=== PATIENT | female | born 1975 | race Caucasian/White ===

== ENCOUNTER 2018-01-31 17:39 | Emergency (ER) | payer OTHER ==
[~2018-01-31] VITALS: Ht 152.4 cm; Wt 58.1 kg
== END 2018-01-31 20:02 | disposition home or self-care (01) ==
LOC: ER 17:39
DX: S80.01XA Contusion of right knee, initial encounter (principal); W18.39XA Other fall on same level, initial encounter; Y93.89 Activity, other specified; Y92.488 Other paved roadways as the place of occurrence of the external cause; Y99.8 Other external cause status

== ENCOUNTER 2022-04-17 21:19 | Emergency (ER) | payer OTHER ==
[~2022-04-17] VITALS: Ht 152.4 cm; Wt 90.7 kg
== END 2022-04-18 | disposition home or self-care (01) ==
LOC: ER 21:19
DX: S01.81XA Laceration without foreign body of other part of head, initial encounter (principal); W18.30XA Fall on same level, unspecified, initial encounter; Y93.39 Activity, other involving climbing, rappelling and jumping off; Y92.832 Beach as the place of occurrence of the external cause; Y99.9 Unspecified external cause status

== ENCOUNTER 2022-04-28 16:28 | Emergency (ER) | payer OTHER ==
[~2022-04-28] VITALS: Ht 154.9 cm; Wt 59.0 kg
== END 2022-04-28 19:39 | disposition home or self-care (01) ==
LOC: ER 16:28
DX: Z48.02 Encounter for removal of sutures (principal)